=== PATIENT | male | born 1995 | race Caucasian/White ===

== ENCOUNTER 2018-09-06 18:34 | Emergency (ER) | payer OTHER ==
[~2018-09-06] VITALS: Ht 170.2 cm; Wt 105.7 kg
[2018-09-06 18:37] VITALS: Ht 170.2 cm; Wt 105.7 kg
[2018-09-06 19:56] LABS: CALCIUM 9.5 mg/dL (8.5-10.1); CARBON DIOXIDE 27.3 mmol/L (21-32); CHLORIDE SERUM 99 mmol/L (98-107); GFR1 > 60 mL/min; GLUCOSE SERUM 93 mg/dL (74-106); POTASSIUM SERUM 3.8 mmol/L (3.5-5.1); SODIUM SERUM 135 mmol/L (136-145)
[2018-09-06 19:57] LABS: BASOPHIL % 0.3 % (0-2); PLATELET COUNT 258 x10^3mcL (130-400); RED CELL DISTRIBUTION WIDTH 12.8 % (11.5-14.5)
[2018-09-06 20:01] LABS: ALBUMIN 4.7 g/dL (3.4-5.0); ALKALINE PHOSPHATASE 77 U/L (46-116); ALT/SGPT 82 U/L (16-63); AST/SGOT 36 U/L (15-37); BILIRUBIN TOTAL 0.5 mg/dL (0.20-1.00)
[2018-09-06 20:02] LABS: TOTAL PROTEIN, SERUM 9.5 g/dL (6.4-8.2)
[2018-09-06 20:09] LABS: AMPHETAMINE QUAL UR NONE DETECTED (See below)
[2018-09-06 20:50] VITALS: BP 123/58
== END 2018-09-06 20:50 | disposition home or self-care (01) ==
LOC: ED 18:34
PROVIDERS: Specialist
DX: F41.9 Anxiety disorder, unspecified (principal); R07.89 Other chest pain
CPT/HCPCS: 36415; 83880; Q0092